=== PATIENT | male | born 1990 ===

== ENCOUNTER 2024-08-11 01:44 | Outpatient (CLI) | payer SELFPAY ==
[2024-08-25 12:29] LABS: Result Summary NEGATIVE; Specimen WB Whole Blood
== END 2024-08-11 01:45 | disposition home or self-care (01) ==
LOC: LBO 01:45
PROVIDERS: Visit Provider Obstetrics & Gynecology
DX: Z13.228 Encounter for screening for other metabolic disorders (principal); Z31.69 Encounter for other general counseling and advice on procreation; E84.9 Cystic fibrosis, unspecified
CPT/HCPCS: 36415; 81220; 81222